=== PATIENT | female | born 1990 | race Caucasian/White ===

== ENCOUNTER 2022-10-02 13:14 | Inpatient (IN) | payer BC, OTHER ==
[~2022-10-02] VITALS: Ht 175.3 cm; Wt 99.8 kg
[2022-10-04] MEDS ORDERED: TERBUTALINE SULFATE 1 MG/ML VIAL SUBCUT ONE (12:15)
[2022-10-04] MEDS ORDERED: NALBUPHINE HCL 10 MG/ML AMP IVP PRN (12:15)
[2022-10-04] MEDS ORDERED: LR 500 ML IV ONE (12:15)
[2022-10-04] MEDS ORDERED: OXYTOCIN/0.9 % SODIUM CHLORIDE 1,000 ML IV SCH (12:15)
[2022-10-04 13:07] LABS: BASOPHILS % (AUTO) 0.3 % (0.0-2.0); EOSINOPHILS # (AUTO) 0.1 K/uL (0.0-0.4); EOSINOPHILS % (AUTO) 0.8 % (0.0-4.0); HEMATOCRIT 38.2 % (36-48); HEMOGLOBIN 12.7 g/dL (12.0-16.0); LYMPHOCYTES # (AUTO) 1.3 K/uL (1.0-5.5); LYMPHOCYTES % (AUTO) 16.3 % (20.5-51.5); MEAN CORPUSCULAR HEMOGLOBIN 29 pg (27-31); MEAN CORPUSCULAR HGB CONC 33 % (32-36); MEAN CORPUSCULAR VOLUME 87 fL (79.0-98.0); MONOCYTES # (AUTO) 0.7 K/uL (0.0-1.0); NEUTROPHILS % (AUTO) 73.6 % (40.0-70.0); PLATELET COUNT (AUTO) 204 K/uL (130-430); RED BLOOD CELL COUNT(AUTO) 4.39 MIL/uL (4.2-6.2); WHITE BLOOD COUNT (AUTO) 8.2 K/uL (4.8-10.8)
[2022-10-04] MEDS: LR 1,000 ML IV SCH ×3 (15:11→23:39)
[2022-10-04 17:22] VITALS: BP_SYST 117
[2022-10-04] MEDS ORDERED: fentaNYL CITRATE/PF 100 MCG/2 ML AMP ONE (23:09)
[2022-10-04] MEDS ORDERED: ROPIVACAINE HCL/PF 0.2% 200 ML ONE (23:09)
[2022-10-04] MEDS ORDERED: FENT2mCg/mL-ROPIVA0.2%/NS EPID 200 ML EP SCH (23:15)
[2022-10-04] MEDS ORDERED: ONDANSETRON HCL 4 MG/2 ML VIAL IVP PRN (23:15)
[2022-10-04] MEDS ORDERED: DIPHENHYDRAMINE INJ 50 MG/ML VIAL IVP PRN (23:15)
[2022-10-04] MEDS ORDERED: NALOXONE HCL 0.4 MG/ML AMP (NARCAN) IVP PRN (23:15)
[2022-10-05] MEDS ORDERED: ROPIVACAINE HCL/PF 0.2% 200 ML ONE ×2 (09:01→18:00)
[2022-10-05] MEDS ORDERED: fentaNYL CITRATE/PF 100 MCG/2 ML AMP ONE ×2 (09:01→18:00)
[2022-10-05] MEDS ORDERED: LIDOCAINE PF 1% 30ML(POUR BTL) INJ ONE ×2 (11:13→11:17)
[2022-10-05] MEDS ORDERED: LIGHT MINERAL OIL 10 ML VIAL MC ONE (11:13)
[2022-10-05] MEDS ORDERED: NALOXONE HCL 0.4 MG/ML AMP (NARCAN) ONE (11:14)
[2022-10-05] MEDS: LR 1,000 ML IV SCH ×2 (11:28→14:19)
[2022-10-05] MEDS ORDERED: METOCLOPRAMIDE HCL 10 MG/2 ML VIAL IVP ONE (19:15)
[2022-10-05] MEDS ORDERED: CITRIC ACID/SODIUM CITRATE 30 ML UDC PO ONE (19:15)
[2022-10-05] MEDS ORDERED: LR 1,000 ML IV ONE (19:15)
[2022-10-05] MEDS ORDERED: MORPHINE SULFATE 10MG/10ML PF AMP ONE (19:57)
[2022-10-05] MEDS ORDERED: TEMAZEPAM 15 MG CAPSULE PO PRN (20:00)
[2022-10-05] MEDS ORDERED: ANUSOL 1 EA SUPP.RECT (PREPARATION H) RC PRN (20:00)
[2022-10-05] MEDS ORDERED: HYDROcodone/ACETAMIN 5-325 MG TAB (NORCO/ VICODIN) PO PRN (20:00)
[2022-10-05] MEDS ORDERED: MEASLES,MUMPS&RUBELLA VACC/PF 12500 UNIT/0.5 ML VIAL SUBQ PRN (20:00)
[2022-10-05] MEDS ORDERED: LR 1,000 ML IV SCH (20:00)
[2022-10-05] MEDS ORDERED: LANOLIN 7 GM OINT. TP PRN (20:00)
[2022-10-05] MEDS ORDERED: NALOXONE HCL 0.4 MG/ML AMP (NARCAN) IVP PRN ×3 (20:00→20:30)
[2022-10-05] MEDS ORDERED: DIPHTH,PERTUSS(ACELL),TET VAC 0.5 ML VIAL (Tdap) I.M. PRN (20:00)
[2022-10-05] MEDS ORDERED: CEFAZOLIN 2 GM IVPB PREMIX 50 ML IV ONE (20:00)
[2022-10-05] MEDS ORDERED: RHO(D) IMMUNE GLOBULIN/MALTOSE 1500 UNITS/1.3 ML (WINHRO) IM PRN (20:00)
[2022-10-05] MEDS ORDERED: BISACODYL 10 MG/SUPPOSITORY RC PRN (20:00)
[2022-10-05] MEDS ORDERED: METHYLERGONOVINE MALEATE 0.2 MG/ML AMP ONE (20:20)
[2022-10-05] MEDS ORDERED: HEMABATE 250MCG/ML VIAL AMP IM ONE (20:20)
[2022-10-05] MEDS ORDERED: ONDANSETRON HCL 4 MG/2 ML VIAL IVP PRN ×2 (20:30)
[2022-10-05] MEDS ORDERED: DIPHENHYDRAMINE INJ 50 MG/ML VIAL IVP PRN (20:30)
[2022-10-05] MEDS ORDERED: METOCLOPRAMIDE HCL 10 MG/2 ML VIAL IVP PRN (20:30)
[2022-10-05] MEDS ORDERED: NALBUPHINE HCL 10 MG/ML AMP IVP PRN (20:30)
[2022-10-05] MEDS ORDERED: MORPHINE SULFATE 10MG/10ML PF AMP SP SCH (20:30)
[2022-10-05] MEDS ORDERED: KETOROLAC TROMETHAMINE 60 MG/2 ML VIAL IM PRN (20:30)
[2022-10-05] MEDS ORDERED: fentaNYL CITRATE/PF 100 MCG/2 ML AMP IVP PRN ×2 (20:30)
[2022-10-05] MEDS: OXYTOCIN/0.9 % SODIUM CHLORIDE 1,000 ML IV SCH (22:41)
[2022-10-06] MEDS: CEFAZOLIN 1 GM IVPB PREMIX 50 ML IV SCH ×3 (02:10→14:09)
[2022-10-06] MEDS: KETOROLAC TROMETHAMINE 30 MG VIAL IVP SCH ×3 (02:12→13:58)
[2022-10-06 07:12] LABS: BASOPHILS % (AUTO) 0.4 % (0.0-2.0); HEMATOCRIT 34.2 % (36-48); HEMOGLOBIN 11.4 g/dL (12.0-16.0); LYMPHOCYTES # (AUTO) 1.3 K/uL (1.0-5.5); LYMPHOCYTES % (AUTO) 10.3 % (20.5-51.5); MEAN CORPUSCULAR HEMOGLOBIN 29 pg (27-31); MEAN CORPUSCULAR HGB CONC 33 % (32-36); MEAN CORPUSCULAR VOLUME 87 fL (79.0-98.0); MONOCYTES # (AUTO) 0.8 K/uL (0.0-1.0); MONOCYTES % (AUTO) 6.8 % (1.7-9.3); NEUTROPHILS % (AUTO) 82.5 % (40.0-70.0); PLATELET COUNT (AUTO) 171 K/uL (130-430); RED BLOOD CELL COUNT(AUTO) 3.95 MIL/uL (4.2-6.2); RED CELL DISTRIBUTION WIDTH 17.2 % (9.0-15.0); WHITE BLOOD COUNT (AUTO) 12.2 K/uL (4.8-10.8)
[2022-10-06] MEDS: OXYTOCIN/0.9 % SODIUM CHLORIDE 1,000 ML IV SCH (08:13)
[2022-10-06] MEDS: DOCUSATE SODIUM 100 MG CAPSULE PO SCH ×2 (14:09→21:23)
[2022-10-06] MEDS: SIMETHICONE 80 MG TAB.CHEW PO PRN ×2 (14:10→21:24)
[2022-10-06 21:00] VITALS: BP_SYST 114
[2022-10-06] MEDS: SENNOSIDES/DOCUSATE SODIUM 1 TAB TABLET(SENOKOT-S) PO SCH (21:21)
[2022-10-06] MEDS: OXYCODONE/ACETAMINOPHEN 5-325 TABLET PO PRN (21:32)
[2022-10-06] MEDS: IBUPROFEN 600 MG TABLET PO SCH (23:36)
[2022-10-07] MEDS: OXYCODONE/ACETAMINOPHEN 5-325 TABLET PO PRN ×2 (02:37→06:47)
[2022-10-07] MEDS: SIMETHICONE 80 MG TAB.CHEW PO PRN ×4 (02:39→21:08)
[2022-10-07] MEDS: IBUPROFEN 600 MG TABLET PO SCH ×3 (06:49→18:41)
[2022-10-07] MEDS: DOCUSATE SODIUM 100 MG CAPSULE PO SCH ×2 (08:45→21:06)
[2022-10-07] MEDS: OXYCODONE/ACETAMINOPHEN *10*mg/325 mg TABLET PO PRN ×3 (12:24→21:05)
[2022-10-07 20:31] VITALS: BP_SYST 111
[2022-10-07] MEDS: SENNOSIDES/DOCUSATE SODIUM 1 TAB TABLET(SENOKOT-S) PO SCH (21:06)
[2022-10-08] MEDS: IBUPROFEN 600 MG TABLET PO SCH ×2 (01:02→06:35)
[2022-10-08] MEDS: OXYCODONE/ACETAMINOPHEN *10*mg/325 mg TABLET PO PRN (06:33)
[2022-10-08] MEDS: DOCUSATE SODIUM 100 MG CAPSULE PO SCH (09:43)
[2022-10-08] MEDS: SIMETHICONE 80 MG TAB.CHEW PO PRN (09:43)
== END 2022-10-08 12:30 | disposition home or self-care (01) | DRG 788 ==
LOC: SPU 10-04 11:20
PROVIDERS: ADMIT Specialist; ATTEND Specialist
PROC: 0U7C7ZZ Dilation of Cervix, Via Natural or Artificial Opening (ICD-10-PCS; 2022-10-05)
PROC: 10D00Z1 Extraction of Products of Conception, Low, Open Approach (ICD-10-PCS; principal; 2022-10-05 20:00)
DX: O48.0 Post-term pregnancy (principal); O62.2 Other uterine inertia; O76 Abnormality in fetal heart rate and rhythm complicating labor and delivery; O32.4XX0 Maternal care for high head at term, not applicable or unspecified; Z20.822 Contact with and (suspected) exposure to COVID-19; Z37.0 Single live birth; Z3A.40 40 weeks gestation of pregnancy
CPT/HCPCS: 36415; 81002; 85025; 86592; 86886; 86900; 86901; 94760; J0690; J1200; J1885; J2001; J2210; J2274; J2300; J2310; J2590; J3010